=== PATIENT | female | born 1955 | race Caucasian/White ===

== ENCOUNTER → 2016-11-08 | Outpatient (CLI) | payer OTHER ==
[~2016-11-08] MED LIST: ACETAMINOPHEN650 M3 PO; ADVAIR HFA 115-12 GM INH; ALBUTEROL20 ml INH; ALLERGY RELIE15.8 ML; AUGMENTIN875 MG PO; BAYER ASPIRIN325 M1 PO; BUSPIRONE HCL10 M1 PO; DELTASONE20 MG; DESYREL100 MG PO; ELIQUIS5 MG PO; FERROUS GLUCON324 MG PO; FLUOXETINE HCL40 M1 PO; LEVOXYL200 MCG PO; LIPITOR20 MG PO; MOBIC PO; MONTELUKAST SOD10 MG PO; OXYCODONE-ACET1 EACH PO; PANTOPRAZOLE SO40 MG PO
--- NOTE | ~2016-11-08 | US128 ---
[address] [address] [id number] P MR#: [id number] Acc #: [id number] NAME: MARIA DE JESUS TONEY : 1955 SEX: F STUDY DATE/TIME: 11/08/2016 10:09 UNIT: [facility]US ROOM: STUDY DESCRIPTION: Thyroid Attending Physician: Regina Dominguez A.P.R.N. Referring Physician: Regina Dominguez A.P.R.N. Ordering Physician: Regina Dominguez A.P.R.N. Primary Care Physician: Sharad Whitaker D.O. MEDICAL IMAGING REPORT This report is preliminary unless electronic signature is present. EXAM Thyroid ultrasound, 11/08/16 COMPARISON Images from a chest CT dated 05/10/2016 CLINICAL HISTORY Chronic hypothyroidism. FINDINGS The gland is markedly atrophic. No mass is seen on either side. It is hypovascular. IMPRESSION Symmetrically atrophic hypovascular gland without nodule. Dictated by... Chuck Quinones M.D. THIS IS AN ELECTRONICALLY VERIFIED REPORT Chuck Quinones M.D. at 11/09/2016 1:19 PM ROJAS/mckenna TD: 11/08/2016 12:46 JOB #: [id number] MEDICAL IMAGING REPORT Page 1 of 1
== END | disposition home or self-care (01) ==
LOC: SGUS 11-04 13:00
DX: E03.8 Other specified hypothyroidism (principal); E03.4 Atrophy of thyroid (acquired)
CPT/HCPCS: 76536

== ENCOUNTER → 2017-03-06 | Outpatient (CLI) | payer OTHER ==
--- NOTE | ~2017-03-06 | CT16 ---
[facility] A Service of [facility] RADIOLOGY TEXT RESULTS PATIENT: MARIA DE JESUS TONEY LOCATION: [facility] : 55 UNIT #: [id number] AGE: [address]: Collin Baum MD SEX: F ORDER DR: [id number] [facility] [address] [place], [place] [address] [id number] O MR#: [id number] Acc #: [id number] NAME: MARIA DE JESUS TONEY : 1955 SEX: F STUDY DATE/TIME: 03/06/2017 10:53 UNIT: [facility] ROOM: STUDY DESCRIPTION: CT Angio Chest for PE Attending Physician: Collin Baum M.D. Referring Physician: Collin Baum M.D. Ordering Physician: Collin Baum M.D. Primary Care Physician: Sharad Whitaker D.O. MEDICAL IMAGING REPORT This report is preliminary unless electronic signature is present EXAM CT angiography chest for PE, 03/06/2017. HISTORY 6-MONTH on followup lung nodule, followup PE, had PE 1 year ago, some shortness of breath off and on. TECHNIQUE CT pulmonary angiography performed with intravenous administration of 80 mL Isovue-370. This CT exam was performed with one or more of the following radiation dose reduction techniques: automatic exposure control, adjustment of mA and/or kV according to patient size, and iterative reconstruction. COMPARISON Most recent comparison study, 05/10/2016. FINDINGS No axillary, mediastinal or hilar adenopathy. Heart is normal in size. No pleural effusions. Visualized portions of the liver, gallbladder, spleen, pancreas, adrenal glands, kidneys notable for stable small left renal cyst. No upper abdominal adenopathy. Visualized alimentary canal unremarkable. Pulmonary parenchyma shows a 3 mm noncalcified nodule, anterior right upper lobe, image 54, previously 4 to 5 mm. Patchy tree-in-bud type densities in the posterior right upper lobe are slightly more pronounced than on the prior examination, but were faintly evident on the prior examination. Consider area of mild bronchiolitis. 9 x 8 mm noncalcified right middle lobe pulmonary nodule unchanged from prior study (image 62). 3 mm noncalcified pulmonary nodule in the right lower lobe unchanged. 9 mm x 6 mm noncalcified pulmonary nodule posterior right lower lobe, image number 82, unchanged. Small area of patchy reticulonodular densities in STS. [facility] A Service of [facility] RADIOLOGY TEXT RESULTS PATIENT: MARIA DE JESUS TONEY LOCATION: [facility] : 55 UNIT #: [id number] AGE: [address]: Collin Baum MD SEX: F ORDER DR: the periphery of the left lower lobe, image number 69, not significantly changed from prior study and probably representing chronic interstitial change. Linear scarring anterior left lung base stable. No suspicious left lung nodule. No entirely new pulmonary nodules are seen. No PE. No aortic aneurysm or dissection. Visualized aortic branch vessels are patent. Bony structures show no acute abnormality. Comparison to a CT examination, 03/06/2016, suggests that the right lung nodules described above are either stable or decreased in size from 03/06/2016. IMPRESSION 1. No PE. No evidence of aortic aneurysm or dissection. 2. Multiple noncalcified right pulmonary nodules. See locations and sizes in body of report above. Stable or decreased in size compared to April 2016 and February 2016 with no entirely new nodules seen. 6 to 12-month CT followup recommended. 3. Minimal reticulonodular/tree-in-bud densities posterolateral right upper lobe. More pronounced than on prior study and probably representing mild bronchiolitis or interstitial pneumonitis. No dominant nodular component and no dense airspace disease. 4. Chronic changes elsewhere in the lungs. See details above. 5. Upper abdomen shows no acute abnormality. Dictated by... Filipe Pete M.D. THIS IS AN ELECTRONICALLY VERIFIED REPORT Filipe Pete M.D. at 03/07/2017 4:57 PM KIANA/gonzález TD: 03/07/2017 07:17 JOB #: [id number] MEDICAL IMAGING REPORT Page 1 of 1 COPY
[2017-03-06 11:01] LABS: POC - CREATININE 1.08 mg/dL (0.44-1.03)
== END | disposition home or self-care (01) ==
LOC: CCAT 09:15
PROVIDERS: Internal Medicine
DX: R06.00 Dyspnea, unspecified (principal); R91.8 Other nonspecific abnormal finding of lung field; I36.1 Nonrheumatic tricuspid (valve) insufficiency
CPT/HCPCS: 71275; 82565; 93306; Q9967